=== PATIENT | female | born 1975 | race Caucasian/White ===

== ENCOUNTER → 2017-10-29 16:02 | Outpatient (CLI) | payer BC, SELFPAY ==
[2017-11-04 12:13] LABS: HPV Reflexed? NOT INDICATED
== END ==
PROVIDERS: Visit Provider Obstetrics & Gynecology
DX: Z12.4 Encounter for screening for malignant neoplasm of cervix (principal)
CPT/HCPCS: 88175; G0145

== ENCOUNTER → 2017-11-06 12:07 | Outpatient (CLI) | payer BC, SELFPAY ==
--- NOTE | 2017-11-06 12:11 | BI_ITS ---
MAMMOGRAPHY - BILATERAL SCREENING REASON FOR EXAM: Female, 42 years old. Routine annual screening examination. PERTINENT HISTORY: Non-contributory. TECHNIQUE: Digital bilateral breast raul (3D mammographic acquisition) in the CC and MLO projections. 2-D mediolateral oblique (MLO) and craniocaudad (CC) views of both breasts were obtained. CAD: Full Field Digital Mammography with Computer Added Detection was performed. COMPARISON: None. Baseline examination. FINDINGS: Breast Composition: The breasts are extremely dense, which lowers the sensitivity of mammography. There are no dominant masses or suspicious calcifications. No other significant abnormalities are identified. BI/SCREENING MAMM (CAD), BILAT IMPRESSION: Negative screening mammogram. Yearly followup mammogram recommended. (A) ASSESSMENT CATEGORY: BIRADS Category 1: Negative. A letter regarding these results will be sent to the patient by the facility within 30 days. Approximately 10% of breast cancers are not detected by mammography. A normal mammogram should not delay biopsy of a clinically suspicious abnormality. [id number] Electronically Signed: Sanjiv Peres MD at 15:44 EDT Tel [phone], Service support ,
== END ==
PROVIDERS: Visit Provider Obstetrics & Gynecology
DX: Z12.31 Encounter for screening mammogram for malignant neoplasm of breast (principal)
CPT/HCPCS: 77063; 77067

== ENCOUNTER 2019-08-08 18:38 | Emergency (ER) | payer BC, SELFPAY ==
[2019-01-28 17:48] VITALS: BMI 23.5
[2019-08-08 18:40] VITALS: BP 144/93; PULSE 107; RESP 16; TEMP 36.8; O2SAT 100; BMI 23.5
--- NOTE | 2019-08-08 18:53 | ED.DCSUM_ITS ---
History of Present Illness Chief Complaint: Abd Pain Informant: Patient Onset: Days Context: Gradual Onset Timing: Waxes and wanes Current Severity: Mild Maximum Severity: Moderate Narrative: Patient presents with abdominal cramping and diarrhea. She states mid last week she felt that she was getting constipated and had some abdominal cramping. She took a total of 3 doses of Dulcolax over the week, the most recent being Thursday morning. About an hour and a half after that she developed vomiting and diarrhea. Vomiting subsided on Thursday but she is continued to have diarrhea Thursday and Thursday. She states when she does pass stool it is just mucus. She denies fever or chills. - Past Medical History (1) GERD (gastroesophageal reflux disease) Status: Chronic Past Medical History - Allergies and Home Meds Allergies/Adverse Reactions: Allergies levofloxacin [From Levaquin] Allergy (Severe, Verified 08/08/19 18:38) seizure Primary Care Physician: Care Physician,No Primary [Primary Care Provider] - Prior records reviewed: Yes Lives: With Family Review of Systems General: Denies: Chills, Fever Eyes: Denies: Visual changes - bilaterally ENT: Denies: Bilateral ear pain Cardiovascular: Denies: Chest pain Respiratory: Denies: Dyspnea, Cough Gastrointestinal: Reports: Abdominal pain, Nausea, Vomiting, Diarrhea Genitourinary: Denies: Dysuria Musculoskeletal: Denies: Extremity Pain Skin: Denies: Rash Neurological: Denies: Headache Hematologic: Denies: Easy bruising Allergy: Denies: Uticaria Physical Exam Vital Signs/Narrative: Vital Signs Temp Pulse Resp BP Pulse Ox 08/08/19 18:40 98.3 F 107 H 16 144/93 H 100 Inital Vital Signs reviewed: Yes General: Well nourished, Well developed Head: Normocephalic ENT: Moist mucous membranes Neck: Supple Cardiovascular: Regular rate, Regular rhythm Respiratory: No distress, CTA bilaterally Abdomen: Soft, Tender - Mild lower abdominal tenderness, Hypoactive bowel sounds. Negative for: Guarding, Rebound tenderness Skin: Normal color Neurological: Alert, Oriented x3 Psychological: Normal affect Diagnostic/Tx/Re-eval Impressions Abdomen/Pelvis CT 08/08/19 20:36 IMPRESSION: 1. Mildly thick-walled distal ileum concerning for infectious or inflammatory ileitis. 2. Stool burden is moderate. 3. Right ovarian cyst, within normal limits. Electronically Signed: Ángela Evans MD at 22:48 EDT Tel , Service support , 08/08/19 20:36 Abdomen/Pelvis WITH Contrast [CT] Stat Laboratory Results 08/08/19 08/08/19 08/08/19 19:35 19:35 19:35 WBC 6.0 RBC 4.72 Hgb 13.3 Hct 41.7 MCV 88.3 MCH 28.2 MCHC 31.9 L RDW Std Deviation 38.7 RDW Coeff of [place] 12.0 Plt Count 380 MPV 8.9 Immature Gran % (Auto) 0.300 Neut % (Auto) 60.6 Lymph % (Auto) 28.6 [place] % (Auto) 8.5 Eos % (Auto) 1.2 Baso % (Auto) 0.8 Absolute Neuts (auto) 3.7 Absolute Lymphs (auto) 1.72 Nucleated RBC % 0 Sodium 142 Potassium 3.2 L Chloride 107 Carbon Dioxide 28.0 Anion Gap 7 BUN 14 Creatinine 0.88 Estim Creat Clear Calc 71.91 Est GFR (MDRD) Af Amer 90 Est GFR (MDRD) Non-Af 74 BUN/Creatinine Ratio 15.8 Glucose 97 Calcium 9.1 Total Bilirubin 0.30 Direct Bilirubin 0.10 AST 13 L ALT 26 Alkaline Phosphatase 68 Total Protein 7.6 Albumin 4.1 Globulin 3.5 Serum , Qual NEGATIVE Urine Color Urine Clarity Urine pH Ur Specific [place] Urine Protein Urine Glucose (UA) Urine Ketones Urine Occult Blood Urine Nitrite Urine Bilirubin Urine Urobilinogen Ur Leukocyte Esterase Urine RBC Urine WBC Ur Squamous Epith Cells Urine Bacteria Urine Mucus 08/08/19 19:35 WBC RBC Hgb Hct MCV MCH MCHC RDW Std Deviation RDW Coeff of [place] Plt Count MPV Immature Gran % (Auto) Neut % (Auto) Lymph % (Auto) [place] % (Auto) Eos % (Auto) Baso % (Auto) Absolute Neuts (auto) Absolute Lymphs (auto) Nucleated RBC % Sodium Potassium Chloride Carbon Dioxide Anion Gap BUN Creatinine Estim Creat Clear Calc Est GFR (MDRD) Af Amer Est GFR (MDRD) Non-Af BUN/Creatinine Ratio Glucose Calcium Total Bilirubin Direct Bilirubin AST ALT Alkaline Phosphatase Total Protein Albumin Globulin Serum , Qual Urine Color Yellow Urine Clarity Sl. Cloudy Urine pH 5.0 Ur Specific [place] 1.020 Urine Protein Negative Urine Glucose (UA) Normal Urine Ketones Negative Urine Occult Blood Negative Urine Nitrite Negative Urine Bilirubin Negative Urine Urobilinogen Normal Ur Leukocyte Esterase Negative Urine RBC 0 SEEN Urine WBC 0 SEEN Ur Squamous Epith Cells 0-5 SEEN Urine Bacteria 0 SEEN Urine Mucus 0 SEEN - Medical Decision Making Patient was initially ordered Zofran and Bentyl but she declined these stating she did not feel she needed medication. CT scan does reveal focal area of probable ileitis with wall thickening. She does have significant stool across the transverse colon. She will be treated with a course of Augmentin as she does have a allergy to fluoroquinolones. She will be referred to Dr. Phelps for follow-up. She is given return instructions. ED Disposition - Plan for ED Patient: Disposition: Home or Assisted Living Diagnosis: Ileitis Instructions: ED Gastroenteritis Bacterial Prescriptions: Amox/Clavulanate Tablet [Augmentin Tablet] 875 mg PO Q12H #20 tab Transmission Status: Pending to [id number] Referrals: Quinn Phelps MD [NON-STAFF] - As soon as possible
[2019-08-08 19:07] VITALS: BP 147/85; PULSE 102; RESP 16; TEMP 36.8; O2SAT 100
[2019-08-08] MEDS: 0.9% Normal Saline 1,000 ML 1000 ML IV (19:33)
--- NOTE | 2019-08-08 19:40 | NURSING ---
PT REFUSES PAIN MEDICATION AT THIS TIME.
[2019-08-08 19:44] LABS: Bacteria 0 SEEN /hpf (None Seen); Mucous, Urine 0 SEEN /hpf (<or=2+); Red Blood Cells-Urine 0 SEEN /hpf (0-5); White Blood Cells 0 SEEN /hpf (0-5)
[2019-08-08 19:47] LABS: Color, Urine Yellow (Yellow); Glucose, Dipstick Normal (Normal); Ketone-Dipstick Negative (Negative); Leukocyte Esterase-Dipstick Negative /ul (Negative); Nitrite-Dipstick Negative (Negative); Occult Blood-Urine Negative /ul (Negative); Protein-Dipstick Negative (Negative); Urine Bilirubin Dipstick Negative (Negative); Urine Clarity Sl. Cloudy (Clear); Urine Urobilinogen Normal (Normal)
[2019-08-08 19:48] LABS: Absolute Lymphocyte Count 1.72 X10^3/uL (0.83-4.51); Absolute Neutrophil Count 3.7 X10^3/uL (2.0-7.7); Basophil# 0.05 X10^3/uL; Basophil% 0.8 % (0-1); Eosinophil# 0.07 X10^3/uL; Eosinophils% 1.2 % (0-5); Hematocrit 41.7 % (37-47); Hemoglobin 13.3 g/dL (12.0-15.0); Lymphocyte # 1.72 X10^3/ul (4.0); Lymphocyte % 28.6 % (19-41); Mean Corp Hgb Conc 31.9 g/dL (32-36); Mean Corpuscular Hgb 28.2 pg (27.0-32.0); Mean Corpuscular Volume 88.3 fL (81-99); Mean Platelet Vol. 8.9 fl (6.2-12.0); Monocyte# 0.51 X10^3/uL; Monocyte% 8.5 % (0-10); NRBC Flagged by Analyzer 0 % (0-5); Neutrophil # 3.65 X10^3/uL (2.7-7.7); Neutrophil % 60.6 % (47-70); Platelet Count 380 K/mm3 (150-450); RBC Distribution Width SD 38.7 fl (35.1-43.9); Red Blood Count 4.72 M/mm3 (4.2-5.4)
[2019-08-08 19:53] LABS: Squamous Epithelial Cells - UA 0-5 SEEN /hpf (5-10)
[2019-08-08 20:00] VITALS: BP 126/89; PULSE 87; RESP 18; TEMP 36.6; O2SAT 100
[2019-08-08 20:01] LABS: AST(SGOT) 13 U/L (15-37); Alanine Aminotransfer ALT/SGPT 26 U/L (13-56); Albumin, Serum 4.1 g/dL (3.2-5.0); Alkaline Phosphatase 68 U/L (45-117); Anion Gap 7 (5-15); BUN 14 mg/dL (7-18); BUN/Creat Ratio 15.8 RATIO (10-20); Calcium,Total 9.1 mg/dL (8.5-10.1); Chloride 107 mmol/L (98-107); Creatinine, Serum 0.88 mg/dL (0.55-1.02); EST Glomerular Filtration Rate 74 mL/min (>60); Est Glom Filt Rate - Afr Amer 90 mL/min (>60); Estimated Creatinine Clearance 71.91 ml/min; Globulin 3.5 g/dL (2.2-4.2); Glucose 97 mg/dL (74-106); Potassium 3.2 mmol/L (3.5-5.1); Protein, Total 7.6 g/dL (6.4-8.2); Sodium Level 142 mmol/L (136-145)
[2019-08-08 20:30] LABS: Internal QC Validated? YES +Cl - CLEAR BKGD; Pregnancy, Serum, hCG Quali. NEGATIVE Negative
--- NOTE | 2019-08-08 20:36 | CT_ITS ---
STUDY: CT ABDOMEN AND PELVIS WITH CONTRAST REASON FOR EXAM: Female, 44 years old. diarrhea, cramping, abd pain RADIATION DOSAGE (If Supplied By Facility): CTDIvol = ( 10.65 ) mGy, DLP = ( 504.60 ) mGycm TECHNIQUE: Transaxial images were obtained from the dome of the diaphragm to the symphysis pubis without oral contrast. Oral and amp; IV Gastrografin and amp; 100mL Isovue-370 was administered. Sagittal and coronal images were reconstructed. Individualized dose optimization techniques were used for this CT. COMPARISON: 12/31/2009. FINDINGS: Lung bases are clear. Heart size is normal. The liver is unremarkable. The gallbladder is unremarkable. The spleen and pancreas are unremarkable. The adrenal glands are normal. The kidneys are unremarkable. No stones or hydronephrosis. The aorta is normal in caliber. There is no free fluid, free air, or organized collection. Mild bowel wall thickening of the terminal ileum suggests infectious or inflammatory ileitis. No bowel obstruction. Normal appendix. Moderate stool burden. Urinary bladder is unremarkable. 2 cm right ovarian cyst, within normal limits. Normal abdominal wall. Normal osseous structures. CT/Abdomen/Pelvis WITH Contrast IMPRESSION: 1. Mildly thick-walled distal ileum concerning for infectious or inflammatory ileitis. 2. Stool burden is moderate. 3. Right ovarian cyst, within normal limits. Electronically Signed: Ángela Evans MD at 22:48 EDT Tel , Service support ,
[2019-08-08 23:11] VITALS: BP 127/84; PULSE 78; RESP 18; O2SAT 100
[2019-08-08] MEDS: Amox/Clavulanate 875 MG Tablet PO (23:50)
== END 2019-08-09 00:12 | disposition home or self-care (01) ==
PROVIDERS: Emergency Provider Emergency Medicine
DX: K52.9 Noninfective gastroenteritis and colitis, unspecified (principal); N83.201 Unspecified ovarian cyst, right side
CPT/HCPCS: 74177; 80048; 80076; 81001; 83630; 84703; 85025; 87177; 87209; 87493; 87506; 96361; 96374; 99284; J7030; J2405

== ENCOUNTER → 2020-03-07 | Outpatient (CLI) | payer BC, SELFPAY ==
[2020-03-11 14:55] LABS: HPV Reflexed? NOT INDICATED
== END | disposition home or self-care (01) ==
LOC: LABSPEC 13:49
PROVIDERS: Visit Provider Obstetrics & Gynecology
DX: Z12.4 Encounter for screening for malignant neoplasm of cervix (principal)
CPT/HCPCS: 88175; G0145

== ENCOUNTER → 2021-10-21 | Outpatient (CLI) | payer BC, SELFPAY ==
[2021-10-27 14:26] LABS: HPV APTIMA, High Risk Negative (Negative)
== END | disposition home or self-care (01) ==
LOC: LABSPEC 15:18
PROVIDERS: Visit Provider Obstetrics & Gynecology
DX: Z12.4 Encounter for screening for malignant neoplasm of cervix (principal)
CPT/HCPCS: 87624; 88175; G0145